=== PATIENT | female | born 1990 | race Caucasian/White ===

== ENCOUNTER 2018-02-05 10:16 | Emergency (ER) | payer OTHER ==
[~2018-02-05] VITALS: Ht 154.9 cm; Wt 108.5 kg
[2018-02-05 10:19] VITALS: BP 124/50
[2018-02-05] MEDS ORDERED: KETOROLAC 30 MG/1 ML ONE (10:45)
[2018-02-05] MEDS ORDERED: KETOROLAC 30 MG/1 ML IM ONE (11:00)
== END 2018-02-05 11:40 | disposition home or self-care (01) ==
LOC: ED 11:23
DX: M65.221 Calcific tendinitis, right upper arm (principal)
CPT/HCPCS: 73080; 96372; 99284; J1885